=== PATIENT | female | born 1995 | race American Indian/Alaskan Native ===

== ENCOUNTER 2018-07-22 07:45 | Emergency (ER) | payer BC ==
[2018-07-22 08:15] VITALS: BMI 25.4
[2018-07-22 08:21] VITALS: PULSE 78; TEMP 98.2
[2018-07-22] MEDS ORDERED: Sodium Chloride 0.9% 1,000 ML IV STA (08:35)
[2018-07-22 09:28] LABS: BLOOD UREA NITROGEN 10 mg/dL (7-21); CALCIUM 8.8 mg/dL (8.4-10.5); GFR NON-AFRICAN AMERICAN > 60; LIPASE 74 U/L (23-300)
[2018-07-22 09:30] LABS: ALB/GLOB RATIO 1.3 (1.1-1.8); ALBUMIN 3.9 g/dL (3.0-4.8); ALT/SGPT 28 U/L (7-56); AST/SGOT 32 U/L (14-36)
[2018-07-22] MEDS ORDERED: Iohexol 350 MG/100 ML VIAL ONE (09:37)
[2018-07-22 09:42] LABS: PH,URINE 6.5 (4.7-8.0); URINE BILIRUBIN NEGATIVE (NEGATIVE); URINE BLOOD LARGE (NEGATIVE); URINE GLUCOSE (UA) NEGATIVE (NEGATIVE); URINE LEUKOCYTE ESTERASE NEGATIVE Leu/uL (NEGATIVE); URINE PROTEIN NEGATIVE mg/dL (<30 mg/dL); URINE UROBILINOGEN 0.2 E.U./dL (<1 E.U./dL)
[2018-07-22 09:45] LABS: EOS # 0.1 (0.0-0.7); EOS % 2.5 % (1.5-5.0); GRAN # 2.55 (1.4-6.5); GRAN % 52.3 % (50.0-68.0); HEMOGLOBIN 13.1 g/dL (12.0-16.0); LYMPH # 1.3 (1.2-3.4); LYMPH % 26.3 % (22.0-35.0); MEAN CELL VOLUME 81.4 fl (80.0-105.0); MEAN CORPUSCULAR HEMOGLOBIN 26.3 pg (25.0-35.0); MEAN CORPUSCULAR HGB CONC 32.3 g/dl (31.0-37.0); MEAN PLATELET VOLUME 9.9 fl (7.0-11.0); MONO # 0.9 (0.1-0.6); MONO % 18.9 % (1.0-6.0); RBC 4.99 10^6/uL (3.5-6.1); RED CELL DISTRIBUTION WIDTH 13.9 % (11.5-14.5); WHITE BLOOD COUNT 4.9 10^3/uL (4.5-11.0)
[2018-07-22 09:48] LABS: URINE APPEARANCE CLEAR (CLEAR); URINE COLOR YELLOW (YELLOW)
[2018-07-22 09:54] LABS: URINE BACTERIA FEW /hpf; URINE RBC 20 - 25 /hpf (0-2)
--- NOTE | 2018-07-22 10:10 | CT ---
Date of service: 07/22/2018 PROCEDURE: CT Abdomen and Pelvis with contrast HISTORY: Lower abdominal pain. Negative test (concurrent with this examination). COMPARISON: None. TECHNIQUE: Intravenous contrast dose: 100 cc Omnipaque 350. Radiation dose: Total exam DLP = 395.33 mGy-cm. This CT exam was performed using one or more of the following dose reduction techniques: Automated exposure control, adjustment of the mA and/or kV according to patient size, and/or use of iterative reconstruction technique. FINDINGS: LOWER THORAX: Unremarkable. LIVER: Unremarkable. No gross lesion or ductal dilatation. GALLBLADDER AND BILE DUCTS: Unremarkable. PANCREAS: Unremarkable. No gross lesion or ductal dilatation. SPLEEN: Unremarkable. ADRENALS: Unremarkable. No mass. KIDNEYS AND URETERS: Unremarkable. No hydronephrosis. No solid mass. VASCULATURE: Unremarkable. No aortic aneurysm. No atherosclerotic calcification or mural plaque present. BOWEL: Edematous, inflammatory changes with bowel wall thickening, diffuse and indicative of acute colitis. APPENDIX: Normal appendix. PERITONEUM: Unremarkable. No free fluid. No free air. LYMPH NODES: Unremarkable. No enlarged lymph nodes. BLADDER: Unremarkable. REPRODUCTIVE: Enlarged, anteverted uterus. Contrast enhancement and anterior mass within the uterus measures 4.4 x 5.4 cm. Uterine fibroid should be considered. Further diagnostic evaluation with pelvic ultrasound recommended. BONES: No acute fracture. OTHER FINDINGS: None. IMPRESSION: Acute pancolitis. Uterine enlargement, likely fibroid mass. Left adnexal dermoid. Communication of results: I discussed these findings with the attending physician in the emergency department Dr. Abad including observations and recommendations for follow-up at 10:03.
[2018-07-22 10:44] VITALS: BP 112/77; RESP 16; O2SAT 99
--- NOTE | 2018-07-22 12:22 | ED PDOC ---
Arrival/HPI - General Chief Complaint: Abdominal Pain Time Seen by Provider: 07/22/18 07:47 Historian: Patient - History of Present Illness Narrative History of Present Illness (Text): 07/22/18 12:18 A 23 year old female, with no significant past medical history, presents to the emergency department complaining of suprapubic and lower abdominal pain for a couple days. Patient reports also experiencing mild nausea, few episodes of vomiting, and vaginal spotting. Patient denies any fever, vaginal discharge, hematuria, bloody stool, dysuria, pain with defecation, or any other complaints at this time. PMD: Dr. Cedillo Time/Duration: < week (couple of days) Past Medical History - Provider Review Nursing Documentation Reviewed: Yes - Cardiac Hx Cardiac Disorders: No - Pulmonary Hx Respiratory Disorders: Yes Hx Asthma: Yes - Psychiatric Hx Substance Use: No Family/Social History - Physician Review Nursing Documentation Reviewed: Yes Family/Social History: No Known Family HX Smoking Status: Current Some Days Smoker Hx Alcohol Use: Yes Frequency of alcohol use: Socially Hx Substance Use: No Allergies/Home Meds Allergies/Adverse Reactions: Allergies shellfish derived Allergy (Verified 07/22/18 08:15) RASH Review of Systems - Physician Review All systems were reviewed & negative as marked: Yes - Review of Systems Constitutional: absent: Fevers Gastrointestinal: Abdominal Pain (suprapubic and lower abdominal pain), Nausea (mild), Vomiting (few episodes). absent: Stool Changes, Hematochezia Genitourinary Female: Vaginal Bleeding (vaginal spotting). absent: Dysuria, Hematuria, Vaginal Discharge Physical Exam Vital Signs Reviewed: Yes Vital Signs Temp Pulse Resp BP Pulse Ox 07/22/18 10:38 16 112/77 99 07/22/18 08:15 98.2 F 78 18 119/71 98 Temperature: Afebrile Blood Pressure: Normal Pulse: Regular Respiratory Rate: Normal Appearance: Positive for: Well-Appearing, Non-Toxic, Comfortable Pain Distress: None Mental Status: Positive for: Alert and Oriented X 3 - Systems Exam Mouth: Present: Moist Mucous Membranes Respiratory/Chest: Present: Clear to Auscultation, Good Air Exchange. No: Respiratory Distress, Accessory Muscle Use Cardiovascular: Present: Regular Rate and Rhythm, Normal S1, S2. No: Murmurs Abdomen: Present: Tenderness (lower abdominal tenderness). No: Distention, Peritoneal Signs Upper Extremity: Present: Normal Inspection. No: Cyanosis, Edema Lower Extremity: Present: Normal Inspection. No: Edema Neurological: Present: GCS=15, CN II-XII Intact, Speech Normal Skin: Present: Warm, Dry, Normal Color. No: Rashes Psychiatric: Present: Alert, Oriented x 3, Normal Insight, Normal Concentration Medical Decision Making ED Course and Treatment: 07/22/18 12:20 Impression: 23 year old female with suprapubic and lower abdominal pain, mild nausea, few episodes of vomiting, and vaginal spotting. Physical exam shows lower abdominal tenderness; no other acute findings on examination. Plan: -- Labs -- Urinalysis -- POC Urine Test -- IV Fluids -- Urine Culture -- Reassess and disposition Progress Notes: 07/22/18 08:30 POC test is negative. 07/22/18 09:07 Ad/Pelvis CT ordered. 07/22/2018 10:06 Abd/Pelvis CT IMPRESSION: Acute pancolitis. Uterine enlargement, likely fibroid mass. Left adnexal dermoid. Dictator: August Balderrama MD 07/22/18 12:00 CT results discussed with patient. Colitis likely viral due to CBC and patient is now aware of uterine fibroid and cyst to right ovary. Follow-up with [facility] for further evaluation. - Lab Interpretations Lab Results: Total Bilirubin 0.5 mg/dL (0.2-1.3) 07/22/18 09:00 AST 32 U/L (14-36) 07/22/18 09:00 ALT 28 U/L (7-56) 07/22/18 09:00 Alkaline Phosphatase 70 U/L (38-126) 07/22/18 09:00 Total Protein 7.0 g/dL (5.8-8.3) 07/22/18 09:00 Albumin 3.9 g/dL (3.0-4.8) 07/22/18 09:00 Globulin 3.0 gm/dL 07/22/18 09:00 Albumin/Globulin Ratio 1.3 (1.1-1.8) 07/22/18 09:00 Lipase 74 U/L (23-300) 07/22/18 09:00 Urine Color Yellow (YELLOW) 07/22/18 09:00 Urine Appearance Clear (CLEAR) 07/22/18 09:00 Urine pH 6.5 (4.7-8.0) 07/22/18 09:00 Ur Specific [place] <= 1.005 (1.005-1.035) 07/22/18 09:00 Urine Protein Negative mg/dL (<30 mg/dL) 07/22/18 09:00 Urine Glucose (UA) Negative mg/dL (NEGATIVE) 07/22/18 09:00 Urine Ketones Negative mg/dL (NEGATIVE) 07/22/18 09:00 Urine Blood Large (NEGATIVE) H 07/22/18 09:00 Urine Nitrate Negative (NEGATIVE) 07/22/18 09:00 Urine Bilirubin Negative (NEGATIVE) 07/22/18 09:00 Urine Urobilinogen 0.2 E.U./dL (<1 E.U./dL) 07/22/18 09:00 Ur Leukocyte Esterase Negative Celia/uL (NEGATIVE) 07/22/18 09:00 Urine RBC 20 - 25 /hpf (0-2) H 07/22/18 09:00 Urine WBC 1 - 3 /hpf (0-6) 07/22/18 09:00 Ur Epithelial Cells 1 - 3 /hpf (0-5) 07/22/18 09:00 Urine Bacteria Few /hpf (NONE) 07/22/18 09:00 I have reviewed the lab results: Yes - RAD Interpretation Radiology Orders: 07/22/18 09:07 ABD & PELVIS IV CONTRAST ONLY [CT] Stat - Medication Orders Current Medication Orders: Discontinued Medications Sodium Chloride (Sodium Chloride 0.9%) 1,000 mls @ 1,000 mls/hr IV .Q1H STA Stop: 07/22/18 09:34 Last Admin: 07/22/18 08:50 Dose: 1,000 mls/hr eMAR Start Stop Document 07/22/18 08:50 FLAVIO (Rec: 07/22/18 09:26 FLAVIO [id number]) Intravenous Solution Start Date 07/22/18 Start Time 08:50 End Date 07/22/18 End time 09:50 Total Infusion Time 60 - Scribe Statement The provider has reviewed the documentation as recorded by the Karan Weber Provider Scribe Attestation: All medical record entries made by the Scribe were at my direction and personally dictated by me. I have reviewed the chart and agree that the record accurately reflects my personal performance of the history, physical exam, medical decision making, and the department course for this patient. I have also personally directed, reviewed, and agree with the discharge instructions and disposition. Disposition/Present on Arrival - Present on Arrival Any Indicators Present on Arrival: No History of DVT/PE: No History of Uncontrolled Diabetes: No Urinary Catheter: No History of Decub. Ulcer: No History Surgical Site Infection Following: None - Disposition Have Diagnosis and Disposition been Completed?: Yes Diagnosis: Colitis, Uterine fibroid Disposition: HOME/ ROUTINE Disposition Time: 10:05 Condition: IMPROVED Discharge Instructions (ExitCare): Uterine Fibroids (DC) Additional Instructions: ANA BRISENO, thank you for letting us take care of you today. The emergency medical care you received today was directed at your acute symptoms. If you were prescribed any medication, please fill it and take as directed. It may take several days for your symptoms to resolve. Return to the Emergency Department if your symptoms worsen, do not improve, or if you have any other problems. Please contact your doctor or call one of the physicians/clinics you have been referred to that are listed on the Patient Visit Information form that is included in your discharge packet. Bring any paperwork you were given at discharge with you along with any medications you are taking to your follow up visit. Our treatment cannot replace ongoing medical care by a primary care judah senior outside of the emergency department. Thank you for allowing the [facility] team to be part of your care today. Drink fluids throughout the day to maintain hydration. Follow up with your [facility] doctor this week for re-evaluation and further management. Prescriptions: Ibuprofen [Motrin] 600 mg PO Q6 PRN #20 tab PRN Reason: Pain, Moderate (4-7) Referrals: Neto Cedillo MD [Primary Care Provider] - Follow up with primary Forms: [employer] (Angolan)
== END 2018-07-22 10:38 | disposition home or self-care (01) ==
LOC: ED 07:45
DX: K52.9 Noninfective gastroenteritis and colitis, unspecified (principal); D25.9 Leiomyoma of uterus, unspecified
CPT/HCPCS: 74177; 80053; 81001; 81025; 83690; 83735; 85025; 87086; 96360; 99283; J7030; Q9967